=== PATIENT | female | born 1940 | race Caucasian/White ===

== ENCOUNTER 2024-12-31 07:51 | Inpatient (IN) | payer MEDICARE, OTHER ==
[2024-12-31] MEDS ORDERED: Sodium Chloride 0.9% 10 ML Syringe FLUSH PRN (07:54)
[2024-12-31 08:10] LABS: BASOPHILS ABSOLUTE AUTO 0.04 K/uL (0.00-0.10); BASOPHILS PERCENT AUTO 0.6 % (0.1-1.3); EOSINOPHILS ABSOLUTE AUTO 0.10 K/uL (0.00-0.40); EOSINOPHILS PERCENT AUTO 1.6 % (0.0-5.4); IMMATURE GRAN ABSOLUTE AUTO 0.03 K/uL (0.00-0.23); IMMATURE GRAN PERCENT AUTO 0.5 % (0.0-0.7); LYMPHOCYTES ABSOLUTE AUTO 1.63 K/uL (0.8-3.3); LYMPHOCYTES PERCENT AUTO 26.2 % (11.4-47.7); MONOCYTES ABSOLUTE AUTO 0.41 K/uL (0.20-0.90); MONOCYTES PERCENT AUTO 6.6 % (3.3-12.6); NEUTROPHILS ABSOLUTE AUTO 4.02 K/uL (1.0-7.6); NEUTROPHILS PERCENT AUTO 64.5 % (40.0-78.1); PLATELET COUNT,PLT 195 K/uL (130-375); RED BLOOD CELL COUNT 4.21 M/uL (3.77-5.24); WHITE BLOOD CELL COUNT,WBC 6.2 K/uL (3.2-11.0)
[2024-12-31 08:38] LABS: A/G RATIO 1.0 (1.2-2.2); ALANINE AMINOTRANSFERASE,ALT 24 U/L (12-78); ASPARTATE AMNIOTRANSFERASE,AST 21 U/L (15-37); BILIRUBIN TOTAL 1.5 mg/dL (0.2-1.0); BLOOD UREA NITROGEN,BUN 16 mg/dL (7-18); CARBON DIOXIDE,CO2 26 mmol/L (21-32); CHLORIDE,CL 101 mmol/L (100-108); CREATININE 1.0 mg/dL (0.6-1.0); ESTIMATED GFR 56 mL/min (>60); GLUCOSE RANDOM 130 mg/dL (74-106); INR 1.0; POTASSIUM,K 3.8 mmol/L (3.6-5.2); PROTEIN TOTAL,TP 7.9 g/dL (6.4-8.2); PTT,PARTIAL THROMBOPLSTIN TIME 23.5 sec (21.8-27.3); SODIUM,NA 137 mmol/L (140-148)
[2024-12-31] MEDS: Iopamidol 755 Mg/ML 100 ML Bottle IV SCH (09:30)
[2024-12-31] MEDS: Sodium Chloride 0.9% 10 ML Syringe FLUSH PRN (09:30)
[2024-12-31] MEDS ORDERED: Ondansetron 4 MG Tab.DIS PO PRN (14:46)
[2024-12-31] MEDS ORDERED: Magnesium Hydroxide 400 MG/5 ML Susp 30 ML Cup PO PRN (14:46)
[2024-12-31] MEDS ORDERED: Ondansetron 4 MG/2 ML SDV IV PRN (14:46)
[2024-12-31] MEDS: Hypromellose 0.3% Ophth Soln 15 ML Bottle EYEBOTH SCH (16:01)
[2025-01-01 06:18] LABS: BLOOD UREA NITROGEN,BUN 11.0 mg/dL (7-18); CARBON DIOXIDE,CO2 24.0 mmol/L (21-32); CHLORIDE,CL 102.0 mmol/L (100-108); CHOLESTEROL HDL 87.0 mg/dL (40-60); CHOLESTEROL LDL DIRECT 82.0 mg/dL (0-100); CHOLESTEROL TOTAL 175.0 mg/dL (0-200); CREATININE 0.8 mg/dL (0.6-1.0); EST CRCL DRUG DOSING (CG) 50.75 mL/min; ESTIMATED GFR 74.0 mL/min (>60); GLUCOSE RANDOM 115.0 mg/dL (74-106); POTASSIUM,K 3.9 mmol/L (3.6-5.2); SODIUM,NA 138.0 mmol/L (140-148)
[2025-01-01 06:26] LABS: BASE EXCESS ARTERIAL 0.2 mm/L; BICARBONATE,ARTERIAL 22.2 mmol/L (22.0-26.0); O2 SATURATION ARTERIAL 95.5 % (95.0-98.0); OXYHEMOGLOBIN 92.5 %; PCO2 ARTERIAL 29.6 mmHg (35.0-42.0); PO2 ARTERIAL 70.1 mmHg (75.0-100.0); TOTAL HEMOGLOBIN 14.2 g/dL (12.0-16.0)
[2025-01-01 06:42] LABS: BASOPHILS PERCENT AUTO 0.2 % (0.1-1.3); EOSINOPHILS ABSOLUTE AUTO 0.03 K/uL (0.00-0.40); EOSINOPHILS PERCENT AUTO 0.3 % (0.0-5.4); IMMATURE GRAN ABSOLUTE AUTO 0.03 K/uL (0.00-0.23); IMMATURE GRAN PERCENT AUTO 0.3 % (0.0-0.7); LYMPHOCYTES ABSOLUTE AUTO 1.54 K/uL (0.8-3.3); LYMPHOCYTES PERCENT AUTO 13.7 % (11.4-47.7); MONOCYTES ABSOLUTE AUTO 0.93 K/uL (0.20-0.90); MONOCYTES PERCENT AUTO 8.3 % (3.3-12.6); NEUTROPHILS ABSOLUTE AUTO 8.70 K/uL (1.0-7.6); NEUTROPHILS PERCENT AUTO 77.2 % (40.0-78.1); PLATELET COUNT,PLT 189 K/uL (130-375); RED BLOOD CELL COUNT 4.14 M/uL (3.77-5.24); WHITE BLOOD CELL COUNT,WBC 11.3 K/uL (3.2-11.0)
[2025-01-01 06:43] LABS: BASOPHILS ABSOLUTE AUTO 0.02 K/uL (0.00-0.10)
[2025-01-01 07:29] LABS: APPEARANCE,URINE CLEAR (CLEAR); GLUCOSE,URINE NEGATIVE (NEGATIVE); OCCULT BLOOD,URINE TRACE-INTACT (NEGATIVE)
[2025-01-01 07:38] LABS: SQUAMOUS EPITHELIAL CELLS,UR RARE /HPF; UROTHELIAL CELLS,URINE NOT SEEN /HPF
[2025-01-01] MEDS: Aspirin 325 MG Tab.EC PO SCH (08:27)
[2025-01-03] MEDS: Trolamine Salicylate/Aloe Vera 10% Crm 85 GM Tube TOP PRN (10:25)
[2025-01-06] MEDS: Sennosides/Docusate Sodium 50-8.6 MG Tab PO PRN (08:38)
== END 2025-01-06 10:25 | DRG 65 ==
LOC: JP.ED 07:51 → JP.MS 13:35
PROVIDERS: ADMIT Internal Medicine; ATTEND Hospitalist
PROC: 4A133R1 Monitoring of Arterial Saturation, Peripheral, Percutaneous Approach (ICD-10-PCS; principal; 2024-12-31)
DX: I63.9 Cerebral infarction, unspecified (principal); I63.30 Cerebral infarction due to thrombosis of unspecified cerebral artery; G81.91 Hemiplegia, unspecified affecting right dominant side; R29.810 Facial weakness; R29.704 NIHSS score 4; H54.7 Unspecified visual loss; E78.00 Pure hypercholesterolemia, unspecified; I10 Essential (primary) hypertension; Z96.659 Presence of unspecified artificial knee joint; R55 Syncope and collapse; R00.1 Bradycardia, unspecified; Z79.899 Other long term (current) drug therapy; Z90.49 Acquired absence of other specified parts of digestive tract; Z98.51 Tubal ligation status
CPT/HCPCS: 36415; 70450; 70496 ×2; 70498 ×2; 70551 ×2; 80053; 84484; 85025; 85610; 85730; 93005; 93010; 99285 ×2; A9270 ×2; Q9967; 36600; 80048; 80061; 81001; 82803; 92610-GN; 93306; 97110-GP; 97112-GP; 97116-GP; 97162-GP; 97167-GO; 97530-GO; 97530-GP; 97535-GO; 99222; 99232; 99238